=== PATIENT | female | born 1985 | race Hispanic/Latino ===

== ENCOUNTER 2018-07-15 23:36 | Emergency (ER) | payer OTHER ==
[2018-07-15 23:45] VITALS: TEMP 98.5; BMI 23.6
[2018-07-16] MEDS ORDERED: Lidocaine 1% w Epi 1:100,000 Inj ONE (00:01)
[2018-07-16] MEDS ORDERED: Lidocaine/Epi 1% 1:100000 20 ML IJ ONE (00:03)
[2018-07-16] MEDS ORDERED: Tdap Vaccine 0.5 ml Vial (10-64 yrs) IM ONE ×2 (00:04→02:24)
--- NOTE | 2018-07-16 00:09 | ED PDOC ---
HPI: General Adult Time Seen by Provider: 07/15/18 23:52 Chief Complaint (Nursing): Trauma Chief Complaint (Provider): fall, facial injury History Per: Patient History/Exam Limitations: no limitations Onset/Duration Of Symptoms: Hrs (2) Current Symptoms Are (Timing): Still Present Additional Complaint(s): 32 y/o female presents for evaluation of facial pain status-post fall x 2 hours ago. Patient states she [place] the [place], fell down approximately 8 steps and landed directly on chin. Patient reports pain to jaw with opening and closing, abrasion to left knee, and feeling "tired". Denies LOC, headache, dizziness, nausea/vomiting, vision changes, neck/back pain. Past Medical History Reviewed: Historical Data, Nursing Documentation, Vital Signs Vital Signs: Last Vital Signs Temp 98.5 F 07/15/18 23:44 Pulse 82 07/15/18 23:44 Resp 18 07/15/18 23:44 BP 126/76 07/15/18 23:44 Pulse Ox 100 07/15/18 23:44 - Medical History PMH: No Chronic Diseases - Surgical History Surgical History: No Surg Hx - Family History Family History: States: No Known Family Hx - Living Arrangements Living Arrangements: With Family - Home Medications Home Medications: Ambulatory Orders Medication Instructions Recorded Cyclobenzaprine [Cyclobenzaprine 10 mg PO BID PRN #14 tab 07/16/18 HCl] Naproxen [Naprosyn] 500 mg PO Q12 PRN #14 tablet 07/16/18 - Allergies Allergies/Adverse Reactions: Allergies Allergy/AdvReac Type Severity Reaction Status Date / Time cefuroxime [From Ceftin] Allergy RASH Verified 07/15/18 23:46 Review of Systems ROS Statement: Except As Marked, All Systems Reviewed And Found Negative ENT: Positive for: Other (jaw pain) Physical Exam - Reviewed Nursing Documentation Reviewed: Yes Vital Signs Reviewed: Yes - Physical Exam Appears: Positive for: Well, Non-toxic, No Acute Distress Head Exam: Positive for: ATRAUMATIC, NORMAL INSPECTION, NORMOCEPHALIC Skin: Positive for: Rash (1cm laceration inferior right chin; no active bleeding, surrounding edema or tenderness noted) ENT: Positive for: Normal ENT Inspection, Other (right-sided palpable "click" at TMJ noted with opening/closing mandible. Patient unable to touch upper/lower molars together bilaterally due to pain; no obvious swelling/deformity noted) Neck: Positive for: Normal, Painless ROM Cardiovascular/Chest: Positive for: Regular Rate, Rhythm Respiratory: Positive for: Normal Breath Sounds Gastrointestinal/Abdominal: Positive for: Normal Exam Back: Positive for: Normal Inspection Extremity: Positive for: Normal ROM, Tenderness (abrasion inferior lateral left knee; tenderness to palpate; FROM) Neurological/Psych: Positive for: Awake, Alert, Oriented (x3) - ECG O2 Sat by Pulse Oximetry: 100 - Progress ED Course And Treament: -upreg -left knee xray -CT head -CT facial bones -wound care -Adacel IM CT scan of the facial bones. Indication: Fall. Mandibular pain. Technique: Axial CT scan images without contrast. Reformatted coronal and sagittal images. Findings: Soft tissue edema/contusion overlying the right paramidline aspect of the mandible. Normal bilateral orbital contents. Normal bilateral medial and inferior orbital avila. Normal bilateral maxillary bones. Normal bilateral maxillary sinuses. Normal bilateral frontozygomatic arches. Normal bilateral zygomatic temporal arches. Normal nasal bones. Normal anterior nasal spine. Normal soft tissue structures. There is no demonstrated fracture. Normal visualized frontal, ethmoidal and sphenoid sinuses. Impression: No CT evidence of acute bone pathology CT SCAN OF THE BRAIN WITHOUT IV CONTRAST CLINICAL INDICATION: Fall. TECHNIQUE: Axial and reformatted sagittal and coronal images of the brain obtained without IV contrast administration. Normal size of the ventricles and extra-axial spaces for the patient's age. Normal white matter tracts of the supratentorial brain. Normal basal ganglia and thalami. Normal brainstem. Normal cerebellum. There is no demonstrated extra-axial, intraparenchymal, or intraventricular hemorrhage. There are no findings of an acute ischemic infarction. Normal calvarium. There is no demonstrated fracture. Normal soft tissue structures. Normal visualized paranasal sinuses. IMPRESSION: Normal unenhanced CT scan of the brain. Patient educated on findings, discharged with rx Naproxen, Flexeril Advised follow up PMD within 2-3 days. Ice affected areas Advised neosporin application to laceration and knee abrasion. suture removal 4- 5 days. Return precautions given Procedures - Laceration/Wound Repair chin Wound Length (cm): 1.5 Wound's Depth, Shape: superficial Irrigated w/ Saline (ccs): 200 Betadine Prep?: No Anesthesia: Lidocaine w/ Epi Volume Anesthetic (ccs): 2 Wound Debrided: minimal Wound Repaired With: Sutures (interrupted. Prolene material) Suture Size/Type: 5:0 Number of Sutures: 5 Wound Complexity: Simple Sterile Dressing Applied?: Yes Disposition - Clinical Impression Clinical Impression: Chin laceration, Mandibular pain, Abrasion of left knee - Patient ED Disposition Is Patient to be Admitted: No Counseled Patient/Family Regarding: Studies Performed, Diagnosis, Need For Followup, Rx Given - Disposition Disposition: Routine/Home Disposition Time: 02:22 Condition: IMPROVED Additional Instructions: Suture removal in 4-5 days Prescriptions: Cyclobenzaprine [Cyclobenzaprine HCl] 10 mg PO BID PRN #14 tab PRN Reason: Muscle Spasm Naproxen [Naprosyn] 500 mg PO Q12 PRN #14 tablet PRN Reason: Pain, Moderate (4-7) Instructions: Temporomandibular Joint (TMJ) Disorders, Taking Care of Bruises, Laceration Repair, Skin Abrasions Forms: [facility] (Telugu)
[2018-07-16 04:37] VITALS: BP 114/57; PULSE 87; RESP 16; O2SAT 98
--- NOTE | 2018-07-16 08:36 | CT ---
Date of service: 07/16/2018 PROCEDURE: CT HEAD WITHOUT CONTRAST. HISTORY: fell down subway stairs COMPARISON: None available. TECHNIQUE: Axial computed tomography images were obtained through the head/brain without intravenous contrast. Radiation dose: Total exam DLP = 827.91 mGy-cm. This CT exam was performed using one or more of the following dose reduction techniques: Automated exposure control, adjustment of the mA and/or kV according to patient size, and/or use of iterative reconstruction technique. FINDINGS: HEMORRHAGE: No intracranial hemorrhage. BRAIN: No mass effect or edema. No atrophy or chronic microvascular ischemic changes. VENTRICLES: Unremarkable. No hydrocephalus. CALVARIUM: Unremarkable. PARANASAL SINUSES: Unremarkable as visualized. No significant inflammatory changes. MASTOID AIR CELLS: Unremarkable as visualized. No inflammatory changes. OTHER FINDINGS: Incidentally noted are dural calcifications. IMPRESSION: Normal CT of the Head. Concordant results (preliminary interpretation) provided by [facility].
--- NOTE | 2018-07-16 09:02 | CT ---
Date of service: 07/16/2018 PROCEDURE: CT MAXILLOFACIAL BONES WITHOUT CONTRAST HISTORY: trauma, mandible pain COMPARISON: None available. TECHNIQUE: Contiguous axial CT images of the maxillofacial bones were obtained. Coronal and sagittal reformats were generated. Radiation dose: Total exam DLP = 783.5 mGy-cm. This CT exam was performed using one or more of the following dose reduction techniques: Automated exposure control, adjustment of the mA and/or kV according to patient size, and/or use of iterative reconstruction technique. FINDINGS: NASAL BONES: Unremarkable. ORBITS: Unremarkable. PARANASAL SINUSES/ MASTOIDS: Clear. MAXILLA: Unremarkable. MANDIBLE/ TEMPOROMANDIBULAR JOINTS: Apparently in this patient with a history of having had trauma to this site. No bony abnormality noted here no temporomandibular dislocation suggested. SKULL BASE: Unremarkable. TEMPORAL BONES: Middle ears and mastoid grossly unremarkable. OTHER FINDINGS: There is trace superficial soft tissue subtle changes in the central to right paracentral IMPRESSION: No fracture or dislocation.Other findings as above. Concordant results (preliminary interpretation) provided by [email or web address].
--- NOTE | 2018-07-16 12:12 | RAD ---
Date of service: 07/16/2018 PROCEDURE: Left Knee Radiographs. HISTORY: Pain. COMPARISON: None. TECHNIQUE: 2 views obtained. FINDINGS: BONES: Normal. No fracture. JOINTS: Normal. No osteoarthritis. JOINT EFFUSION: None. OTHER FINDINGS: Trace lateral patellar tilt suggested. IMPRESSION: Trace lateral patellar tilt. Otherwise unremarkable
== END 2018-07-16 03:05 | disposition home or self-care (01) ==
LOC: H.ER 23:36
DX: S01.81XA Laceration without foreign body of other part of head, initial encounter (principal); S80.212A Abrasion, left knee, initial encounter; R68.84 Jaw pain; W10.9XXA Fall (on) (from) unspecified stairs and steps, initial encounter; Z23 Encounter for immunization
CPT/HCPCS: 70450; 70486; 73562; 81025; 90471; 90715; 96372; 99285; J1885

== ENCOUNTER 2018-07-20 10:48 | Emergency (ER) | payer OTHER ==
[2018-07-20 11:01] VITALS: BMI 22.1
[2018-07-20 11:05] VITALS: RESP 18; TEMP 98.6; O2SAT 98
--- NOTE | 2018-07-20 11:38 | ED PDOC ---
HPI: Wound Care - HPI Time Seen by Provider: 07/20/18 11:15 Chief Complaint (Nursing): Suture/Staple Removal Chief Complaint (Provider): Suture/Staple Removal History Per: Patient Exam Limitations: no limitations Onset/Duration Of Symptoms: Days (x5) Current Symptoms Are (Timing): Still Present Additional Complaint(s): Patient is a 32 y/o female with no significant PMHx who presents to the ED for evaluation of suture removal. Patient experienced a mechanical fall five days ago and sustained a laceration to the right side of her chin. Five sutures were placed and the patient was advised to return to the ED to have sutures removed after five days. Patient states the wound is healing well and denies redness, pus, or bleeding. Patient complains of mild pain to her jaw but reports no difficulty chewing. PCP: None Provided Past Medical History Reviewed: Historical Data, Nursing Documentation, Vital Signs Vital Signs: Last Vital Signs Temp 98.6 F 07/20/18 11:01 Pulse 96 H 07/20/18 11:01 Resp 18 07/20/18 11:01 BP 115/76 07/20/18 11:01 Pulse Ox 98 07/20/18 11:01 - Medical History PMH: No Chronic Diseases - Surgical History Surgical History: No Surg Hx - Family History Family History: States: No Known Family Hx - Home Medications Home Medications: Ambulatory Orders Medication Instructions Recorded Cyclobenzaprine [Cyclobenzaprine 10 mg PO BID PRN #14 tab 07/16/18 HCl] Naproxen [Naprosyn] 500 mg PO Q12 PRN #14 tablet 07/16/18 - Allergies Allergies/Adverse Reactions: Allergies Allergy/AdvReac Type Severity Reaction Status Date / Time cefuroxime [From Ceftin] Allergy RASH Verified 07/20/18 11:06 Review of Systems ROS Statement: Except As Marked, All Systems Reviewed And Found Negative Musculoskeletal: Positive for: Other (Mild Jaw Pain) Skin: Positive for: Other (laceration with five sutures in place to right-side of chin; no redness, pus, or bleeding) Physical Exam - Reviewed Nursing Documentation Reviewed: Yes Vital Signs Reviewed: Yes - Physical Exam Appears: Positive for: No Acute Distress Head Exam: Positive for: ATRAUMATIC, NORMAL INSPECTION, NORMOCEPHALIC Skin: Positive for: Normal Color, Warm, DRY Eye Exam: Positive for: EOMI, Normal appearance, PERRL Neck: Positive for: Normal, Painless ROM, Supple Cardiovascular/Chest: Positive for: Regular Rate, Rhythm. Negative for: Murmur Respiratory: Positive for: Normal Breath Sounds. Negative for: Respiratory Distress Neurological/Psych: Positive for: Alert, Oriented (x3) Comments: CHIN: well healing wound to right-side, five sutures in place; (-) erythema, (-) pus expression, (-) ecchymosis, (-) swelling, and (-) bleeding - ECG O2 Sat by Pulse Oximetry: 98 (RA) Pulse Ox Interpretation: Normal Medical Decision Making Medical Decision Making: Time: 1115 Impression: Suture Removal Plan: Two medial sutures removed with small opening of wound. Decision made with patient to leave remaining sutures in place. The area that the sutures were removed from were covered with steristrips. Patient instructed to followup after two more days with PCP or in the ED to have the remaining sutures removed. Wound care parameters also discussed. Scribe Attestation: Documented by Aidan Curran, acting as a scribe for Iman Flannery MD. Provider Scribe Attestation: All medical record entries made by the Scribe were at my direction and personally dictated by me. I have reviewed the chart and agree that the record accurately reflects my personal performance of the history, physical exam, medical decision making, and the department course for this patient. I have also personally directed, reviewed, and agree with the discharge instructions and disposition. Disposition - Clinical Impression Clinical Impression: Removal of suture - Disposition Disposition Time: 11:30 Condition: IMPROVED Additional Instructions: Keep wound clean and dry. Follow up in 2 to 3 days for further evaluation/suture removal. Return to the emergency department if the wound begins to have swelling, pus, or bleeding. Instructions: How to Prevent Surgical Site Infections, Stitches Removal Forms: [employer] ([place]) Print Language: LAO
[2018-07-20 11:48] VITALS: BP 118/72; PULSE 90
== END 2018-07-20 11:38 | disposition home or self-care (01) ==
LOC: H.ER 10:48
DX: Z48.02 Encounter for removal of sutures (principal)

== ENCOUNTER 2018-07-23 19:35 | Emergency (ER) | payer OTHER ==
[2018-07-23 19:35] VITALS: BMI 22.1
[2018-07-23 19:50] VITALS: BP 114/71; PULSE 88; RESP 16; TEMP 98.2; O2SAT 100
--- NOTE | 2018-07-23 20:22 | ED PDOC ---
HPI: General Adult Time Seen by Provider: 07/23/18 20:20 Chief Complaint (Nursing): Suture/Staple Removal Chief Complaint (Provider): suture removal History Per: Patient (32 y/o female here for suture removal today. Has initial injury 8 days ago when she fell down [employer] stairs. Was seen 5 days later with 2 sutures removed and advised f/u in ED) Past Medical History Reviewed: Historical Data, Nursing Documentation, Vital Signs Vital Signs: Last Vital Signs Temp 98.2 F 07/23/18 19:45 Pulse 88 07/23/18 19:45 Resp 16 07/23/18 19:45 BP 114/71 07/23/18 19:45 Pulse Ox 100 07/23/18 19:45 - Family History Family History: States: No Known Family Hx - Home Medications Home Medications: Ambulatory Orders Medication Instructions Recorded Cyclobenzaprine [Cyclobenzaprine 10 mg PO BID PRN #14 tab 07/16/18 HCl] Naproxen [Naprosyn] 500 mg PO Q12 PRN #14 tablet 07/16/18 - Allergies Allergies/Adverse Reactions: Allergies Allergy/AdvReac Type Severity Reaction Status Date / Time cefuroxime [From Ceftin] Allergy RASH Verified 07/23/18 19:45 Review of Systems ROS Statement: Except As Marked, All Systems Reviewed And Found Negative Physical Exam - Reviewed Nursing Documentation Reviewed: Yes Vital Signs Reviewed: Yes - Physical Exam Appears: Positive for: Well, Non-toxic, No Acute Distress Head Exam: Positive for: ATRAUMATIC, NORMAL INSPECTION, NORMOCEPHALIC Skin: Positive for: Warm. Negative for: Normal Color (three sutures intact well healing wound chin) Eye Exam: Positive for: EOMI, Normal appearance, PERRL ENT: Positive for: Normal ENT Inspection Neck: Positive for: Normal, Painless ROM Cardiovascular/Chest: Positive for: Regular Rate, Rhythm Respiratory: Positive for: CNT, Normal Breath Sounds Gastrointestinal/Abdominal: Positive for: Normal Exam, Soft Back: Positive for: Normal Inspection Extremity: Positive for: Normal ROM Neurological/Psych: Positive for: Awake, Alert, Normal Tone - ECG O2 Sat by Pulse Oximetry: 100 - Progress ED Course And Treament: VERBAL CONSENT PRIOR TO PROCEDURE THREE SUTURES REMOVED WITHOUT DIFFICULTY. Disposition - Clinical Impression Clinical Impression: Removal of suture - Patient ED Disposition Is Patient to be Admitted: No - Disposition Disposition: Routine/Home Disposition Time: 20:21 Condition: FAIR Instructions: Stitches Removal
== END 2018-07-23 20:27 | disposition home or self-care (01) ==
LOC: H.ER 19:35
DX: Z48.02 Encounter for removal of sutures (principal)